=== PATIENT | male | born 1995 | race American Indian/Alaskan Native ===

== ENCOUNTER 2022-02-23 09:58 | Emergency (ER) | payer MEDICARE ==
[2022-02-23 10:05] VITALS: BP 117/76
[2022-02-23 10:34] LABS: Bilirubin,Urine NEG (Negative); Blood,Urine NEG (Negative); Color,Urine Straw (Yellow); Protein,Urine <15 mg/dL mg/dL (Negative); RBC,Urine < 1.0 /HPF (0.0-6.0); Urobilinogen,Urine < 2.0 mg/dL (<2.0); WBC,Urine < 1.0 /HPF (0.0-6.0)
[2022-02-23 10:39] LABS: Amphetamine Screen,Urine Negative; Benzodiazepines Screen,Urine Negative; Cannabinoid Screen,Urine Negative; Cocaine Screen,Urine Negative; Methadone Screen,Urine Negative; Opiate Screen,Urine Negative
--- NOTE | 2022-02-23 10:53 | Consultation ---
History of Present Illness - Reason for Consult Consult date: 02/23/22 Reason for consult: hallucinations - History of Present Psychiatric Illness The patient was seen today. He says he is hearing voices. The patient says he always hears them. I ask was the voices worse today, he says "somewhat." He says "they are yelling loud." I ask him were they telling him anything threatening or negative. He says "no, just talking loud." He says he takes meds but could not recall them. The patient denies SI/HI. I saw this patient back in January and spoke to his mother in debt. At that time mom says the patient chronically hears voices and has a solid outpatient plan in place. Mom stated the patient has had multiple inpatient admissions. The patient states he lives in a nursing home. PAST PSYCHIATRIC HISTORY Diagnoses: schizoaffective disorder, bipolar disorder, and autism or developmental delay. Suicide attempts or Self-harm behavior: Once Prior psychiatric hospitalizations: yes Substance Abuse history: Denies Previous psychiatric medications tried:( unknown monthly INJ) Outpatient treatment: Yes PAST MEDICAL HISTORY: unknown Family Psychiatric History: unknown SOCIAL HISTORY Marital Status: Single Living Arrangements: Lives in a nursing home Employment Status: Unemployed Access to guns/weapons: None reported Education: 12th grade History of Abuse: None reported Legal History: None reported REVIEW OF SYSTEMS Constitutional: Negative for weight loss ENT: Negative for stridor Respiratory: Negative for cough or hemoptysis All other systems reviewed and are negative MENTAL STATUS EXAMINATION General Appearance and Behavior: Age appropriate, good hygiene, wearing appropriate clothes, fair eye contact, calm and cooperative Cooperation: cooperative Mood: good Affect and affective range: Incongruent with mood Thought Process: circumstantial Thought Content: hallucinations Speech: normal tone and pace Suicidal Ideation: Denies Homicidal Ideation: Denies Hallucinations: Auditory Delusions: None elicited Impulse Control: Limited Insight and Judgment: Limited insight and judgment, Memory: Normal Attention: Normal Orientation: Alert, oriented x 2 Assessment and Plan (1) Hx of Schizophrenia Treatment Plan The patient to continue previously prescribed medications Risks, benefits and alternatives of medications discussed with the patient, questions answered and consent obtained from patient. PSYCHOTHERAPY: Supportive psychotherapy provided MEDICAL: Per primary team DELIRIUM PRECAUTIONS: Please re-orient patient frequently, keep lights on during the day, and minimize benzodiazepines and opiates as these medications could worsen patient's confusion. LEARNING DESIGNER: Defer to primary DISPOSITION: Do not recommend acute psychiatric inpatient treatment. The patient advised that if SI/HI or any fear of endangerment are to arise they are to seek immediate assistance. FOLLOW-UP: Will sign off Thank you for the consult. Please contact with any questions and/or concerns. Case staffed with Filemon Medications and Allergies Allergies Allergy/AdvReac Type Severity Reaction Status Date / Time No Known Allergies Allergy Verified 02/23/22 10:05 Mental Status Exam - Vital signs Last Vital Signs Temp 98.7 F 02/23/22 10:04 Pulse 98 H 02/23/22 10:04 Resp 16 02/23/22 10:04 BP 117/76 02/23/22 10:04 Pulse Ox 98 02/23/22 10:04 Results Abnormal lab results 02/23/22 Range/Units Unknown Urine pH 9.0 H (5.0-7.0) All other labs normal.
--- NOTE | 2022-02-23 12:02 | Emergency Department Report ---
HPI - General Chief Complaint: Psych Time Seen by Provider: 02/23/22 11:30 - HPI HPI: The patient came to be evaluated by psychiatry. He is a known schizophrenic patient with good compliance that has been hearing voices. At this time he was evaluated by psychiatry and deemed not a danger to himself or others. He has been given a recommendation to be discharged from psychiatry. Medically he has got no complaints. He denies nausea vomiting fever chills chest pain focal weakness headache or any other associated symptoms. ED Past Medical Hx - Past Medical History Previous Medical History?: Yes Hx Psychiatric Treatment: Yes (schizophrenic) ED Review of Systems ROS: Stated complaint: PSYCH Other details as noted in HPI Comment: All other systems reviewed and negative Physical Exam - Physical Exam Vital Signs: Vital Signs 02/23/22 10:04 Temperature 98.7 F Pulse Rate 98 H Respiratory 16 Rate Blood Pressure 117/76 [Right] O2 Sat by Pulse 98 Oximetry Physical Exam: Physical Exam: Constitutional: AAOX3. No acute distress. No diaphoresis. HENT: Normocephalic. Pupils equal and reactive. No throat edema or erythema. Neck: No neck rigidity or tenderness. Cardiovascular: Heart sounds: No murmur. Normal rate and regular rhythm. Pulses: Intact distal pulses. Lungs: No wheezing or rales. Chest wall: No tenderness. Abdominal: No distension. No mass/pulsatile mass. No abdominal tenderness, guarding nor rebound. Musculoskeletal: Normal range of motion. No edema, No calf TTP. Skin: Warm and dry. Neurological: Alert and oriented to person, place, and time. Psychiatric: Mood and affect normal. Normal cognition and memory. Normal judgement. He says he hears loud voices but he does not seem to be hearing them at this time. He is nonsuicidal. ED Course Vital Signs 02/23/22 10:04 Temperature 98.7 F Pulse Rate 98 H Respiratory 16 Rate Blood Pressure 117/76 [Right] O2 Sat by Pulse 98 Oximetry Critical care attestation.: If time is entered above; I have spent that time in minutes in the direct care of this critically ill patient, excluding procedure time. ED Disposition Clinical Impression: Schizophrenia Disposition: 01 HOME / SELF CARE / HOMELESS Is pt being admited?: No Does the pt Need Aspirin: No Condition: Stable Instructions: Supporting Someone With Schizophrenia, Managing Schizophrenia Additional Instructions: Professional and Agency Contacts To help Resolve Crises(06/06) MD Crisis Line: Suicide Prevention Line: Crisis Text Line: Text START to [phone] Emergency: 911 Outpatient COMM[facility] Behavioral Health Resources: NOEL: [facility] [address] [place], [place] [address] LEON: [facility] [address] [place] [address] BRAYDEN: [facility] - [address] [place] [address] Tuesday thru Tuesday - 8am - 5pm AR[place]K: [facility] Service Address: [address] [place] [address] FERNANDA: [facility] Address: [address] [place] [address] Tuesday thru Tuesday- 7am-2pm [facility] Address: [address] [place] [address] Tuesday thru Tuesday: 8:30AM-5PM Time of Disposition: 12:05 Print Language: JAPANESE
== END 2022-02-23 13:00 | disposition home or self-care (01) ==
LOC: ED 09:58
DX: F20.9 Schizophrenia, unspecified (principal); Z20.822 Contact with and (suspected) exposure to COVID-19
CPT/HCPCS: 80307; 81001; 99284; U0003

== ENCOUNTER 2022-06-27 08:13 | Emergency (ER) | payer MEDICARE ==
[2022-06-27 08:16] VITALS: BP 124/72
--- NOTE | 2022-06-27 13:52 | Emergency Department Report ---
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 Mother states he does this when he does not get his way. She states nothing is wrong with him Symptoms Since Prior Visit: no new symptoms - Related Data Home Medications Medication Instructions Recorded Confirmed Last Taken Benztropine Mesylate 1 mg PO BID 07/20/19 05/09/22 07/19/19 [place] Carbonate ER [Lithobid ER] 450 mg PO BID 07/20/19 05/09/22 07/19/19 Trazodone HCl 150 mg PO QHS 07/20/19 05/09/22 07/19/19 clonazePAM [Klonopin] 1 mg PO BID 07/20/19 05/09/22 07/19/19 cloZAPine [Clozapine] 100 mg PO QHS 05/19/21 05/09/22 Unknown ARIPiprazole [Abilify Maintena] 400 mg IM QMONTH 01/26/22 05/09/22 05/07/22 400 MG Divalproex ER [DepaKOTE ER] 250 mg PO BID 01/26/22 05/09/22 Unknown Divalproex ER [DepaKOTE ER] 500 mg PO HS 01/26/22 05/09/22 Unknown Melatonin [Melatonin 10MG CAP] 10 mg PO HS 01/26/22 05/09/22 Unknown Previous Rx's Medication Instructions Recorded Last Taken Type Cetirizine HCl [Zyrtec 10mg tab] 10 mg PO DAILY #20 tab 12/01/21 Unknown Rx Allergies Allergy/AdvReac Type Severity Reaction Status Date / Time No Known Allergies Allergy Verified 06/27/22 08:16 ED Review of Systems ROS: Stated complaint: ANXIETY Other details as noted in HPI Comment: All other systems reviewed and negative ED Past Medical Hx - Past Medical History Previous Medical History?: Yes Hx Psychiatric Treatment: Yes (SCHIZOAFFECTIVE DISORDER) - Surgical History Past Surgical History?: No Additional Surgical History: UNKNOWN - Family History Family history: no significant - Social History Smoking Status: Current Every Day Smoker Substance Use Type: None - Medications Home Medications: Home Medications Medication Instructions Recorded Confirmed Last Taken Type Benztropine Mesylate 1 mg PO BID 07/20/19 05/09/22 07/19/19 History [place] Carbonate ER [Lithobid ER] 450 mg PO BID 07/20/19 05/09/22 07/19/19 History Trazodone HCl 150 mg PO QHS 07/20/19 05/09/22 07/19/19 History clonazePAM [Klonopin] 1 mg PO BID 07/20/19 05/09/22 07/19/19 History cloZAPine [Clozapine] 100 mg PO QHS 05/19/21 05/09/22 Unknown History Cetirizine HCl [Zyrtec 10mg tab] 10 mg PO DAILY #20 tab 12/01/21 05/09/22 Unknown Rx ARIPiprazole [Abilify Maintena] 400 mg IM QMONTH 01/26/22 05/09/22 05/07/22 History 400 MG Divalproex ER [DepaKOTE ER] 250 mg PO BID 01/26/22 05/09/22 Unknown History Divalproex ER [DepaKOTE ER] 500 mg PO HS 01/26/22 05/09/22 Unknown History Melatonin [Melatonin 10MG CAP] 10 mg PO HS 01/26/22 05/09/22 Unknown History ED Physical Exam - General Limitations: No Limitations General appearance: alert, in no apparent distress, anxious - Head Head exam: Present: atraumatic, normocephalic - Eye Eye exam: Present: normal appearance - ENT ENT exam: Present: mucous membranes moist - Neck Neck exam: Present: normal inspection - Respiratory Respiratory exam: Present: normal lung sounds bilaterally. Absent: respiratory distress - Cardiovascular Cardiovascular Exam: Present: regular rate, normal rhythm. Absent: systolic murmur, diastolic murmur, rubs, gallop - GI/Abdominal GI/Abdominal exam: Present: soft, normal bowel sounds - Rectal Rectal exam: Present: deferred - Extremities Exam Extremities exam: Present: normal inspection - Back Exam Back exam: Present: normal inspection - Neurological Exam Neurological exam: Present: alert, oriented X3 - Psychiatric Psychiatric exam: Present: anxious - Skin Skin exam: Present: warm, dry, intact, normal color. Absent: rash ED Course Vital Signs 06/27/22 08:14 Temperature 98.7 F Pulse Rate 86 Respiratory 14 Rate Blood Pressure 124/72 [Left] O2 Sat by Pulse 100 Oximetry ED Recheck MDM - Core Measures Measure Exclusions: not indicated - Medical Decision Making no hi no si no a/v hallucination cooperative on exam he states is ready to go back to [facility] he has no complaints dc to [facility]. Vital Signs 06/27/22 08:14 Temperature 98.7 F Pulse Rate 86 Respiratory 14 Rate Blood Pressure 124/72 [Left] O2 Sat by Pulse 100 Oximetry Critical care attestation.: If time is entered above; I have spent that time in minutes in the direct care of this critically ill patient, excluding procedure time. ED Disposition Clinical Impression: Anxiety Disposition: 01 HOME / SELF CARE / HOMELESS Is pt being admited?: No Does the pt Need Aspirin: No Condition: Stable Additional Instructions: continue home meds cleared for [facility] follow up with pcp/MH provider Time of Disposition: 13:52
== END 2022-06-27 18:50 | disposition home or self-care (01) ==
LOC: ED 08:13
DX: F41.9 Anxiety disorder, unspecified (principal); F17.200 Nicotine dependence, unspecified, uncomplicated; F25.9 Schizoaffective disorder, unspecified
CPT/HCPCS: 99283

== ENCOUNTER 2022-07-06 10:02 | Emergency (ER) | payer MEDICARE ==
[2022-07-06 10:08] VITALS: BP 122/72
--- NOTE | 2022-07-06 11:31 | Emergency Department Report ---
ED General Adult HPI - General Chief complaint: Medical Clearance Stated complaint: FEELING SICK/BODY ACHES Time Seen by Provider: 07/06/22 10:37 Source: EMS Mode of arrival: Ambulatory Limitations: No Limitations - History of Present Illness Initial comments: 26-year-old male past medical history autism. Reports to the ER with complaints of body aches. When asked how long patient states for a "long time". Patient reports waking up with body aches and took his morning medications. Patient now reports he no longer feels body aches and feels okay. Patient denies any nausea, no fever, no abdominal pain, no congestion, no cough, no headache, no dizziness. Patient reports no other acute symptoms at this time. Call patient's legal guardian his mother Estelle Pittman for further history at [phone]. Mother reports patient take his medication this morning with no problems. Mother states patient is due for his Abilify at [facility] tomorrow. Mother reports no other acute symptoms at this time. Mother states patient called EMS for his body aches. Mother reports no other acute symptoms at this time. - Related Data Home Medications Medication Instructions Recorded Confirmed Last Taken Benztropine Mesylate 1 mg PO BID 07/20/19 05/09/22 07/19/19 [place] Carbonate ER [Lithobid ER] 450 mg PO BID 07/20/19 05/09/22 07/19/19 Trazodone HCl 150 mg PO QHS 07/20/19 05/09/22 07/19/19 clonazePAM [Klonopin] 1 mg PO BID 07/20/19 05/09/22 07/19/19 cloZAPine [Clozapine] 100 mg PO QHS 05/19/21 05/09/22 Unknown ARIPiprazole [Abilify Maintena] 400 mg IM QMONTH 01/26/22 05/09/22 05/07/22 400 MG Divalproex ER [DepaKOTE ER] 250 mg PO BID 01/26/22 05/09/22 Unknown Divalproex ER [DepaKOTE ER] 500 mg PO HS 01/26/22 05/09/22 Unknown Melatonin [Melatonin 10MG CAP] 10 mg PO HS 01/26/22 05/09/22 Unknown Previous Rx's Medication Instructions Recorded Last Taken Type Cetirizine HCl [Zyrtec 10mg tab] 10 mg PO DAILY #20 tab 12/01/21 Unknown Rx Allergies Allergy/AdvReac Type Severity Reaction Status Date / Time No Known Allergies Allergy Verified 06/27/22 08:16 ED Review of Systems ROS: Stated complaint: FEELING SICK/BODY ACHES Other details as noted in HPI Comment: All other systems reviewed and negative Musculoskeletal: myalgia ED Past Medical Hx - Past Medical History Previous Medical History?: Yes Hx Psychiatric Treatment: Yes (SCHIZOAFFECTIVE DISORDER) - Surgical History Additional Surgical History: UNKNOWN - Social History Smoking Status: Current Every Day Smoker Substance Use Type: None - Medications Home Medications: Home Medications Medication Instructions Recorded Confirmed Last Taken Type Benztropine Mesylate 1 mg PO BID 07/20/19 05/09/22 07/19/19 History [place] Carbonate ER [Lithobid ER] 450 mg PO BID 07/20/19 05/09/22 07/19/19 History Trazodone HCl 150 mg PO QHS 07/20/19 05/09/22 07/19/19 History clonazePAM [Klonopin] 1 mg PO BID 07/20/19 05/09/22 07/19/19 History cloZAPine [Clozapine] 100 mg PO QHS 05/19/21 05/09/22 Unknown History Cetirizine HCl [Zyrtec 10mg tab] 10 mg PO DAILY #20 tab 12/01/21 05/09/22 Unknown Rx ARIPiprazole [Abilify Maintena] 400 mg IM QMONTH 01/26/22 05/09/22 05/07/22 History 400 MG Divalproex ER [DepaKOTE ER] 250 mg PO BID 01/26/22 05/09/22 Unknown History Divalproex ER [DepaKOTE ER] 500 mg PO HS 01/26/22 05/09/22 Unknown History Melatonin [Melatonin 10MG CAP] 10 mg PO HS 01/26/22 05/09/22 Unknown History ED Physical Exam - General Limitations: No Limitations General appearance: alert, in no apparent distress - Head Head exam: Present: atraumatic, normocephalic - Eye Eye exam: Present: normal appearance - ENT ENT exam: Present: mucous membranes moist - Neck Neck exam: Present: normal inspection - Respiratory Respiratory exam: Present: normal lung sounds bilaterally. Absent: respiratory distress - Cardiovascular Cardiovascular Exam: Present: regular rate, normal rhythm. Absent: systolic murmur, diastolic murmur, rubs, gallop - GI/Abdominal GI/Abdominal exam: Present: soft, normal bowel sounds - Rectal Rectal exam: Present: deferred - Extremities Exam Extremities exam: Present: normal inspection - Back Exam Back exam: Present: normal inspection - Neurological Exam Neurological exam: Present: alert, oriented X3 - Psychiatric Psychiatric exam: Present: normal affect, normal mood - Skin Skin exam: Present: warm, dry, intact, normal color. Absent: rash ED Course Vital Signs 07/06/22 10:05 Temperature 98.3 F Pulse Rate 98 H Respiratory 18 Rate Blood Pressure 122/72 [Left] O2 Sat by Pulse 100 Oximetry ED Medical Decision Making - Medical Decision Making 26-year-old male past medical history autism. Reports to the ER with complaints of body aches. When asked how long patient states for a "long time". Patient reports waking up with body aches and took his morning medications. Patient now reports he no longer feels body aches and feels okay. Patient denies any nausea, no fever, no abdominal pain, no congestion, no cough, no headache, no dizziness. Patient reports no other acute symptoms at this time. Call patient's legal guardian his mother Estelle Pittman for further history at [phone]. Mother reports patient take his medication this morning with no problems. Mother states patient is due for his Abilify at [facility] tomorrow. Mother reports no other acute symptoms at this time. Mother states patient called EMS for his body aches. Mother reports no other acute symptoms at this time. No acute clinical findings on physical exam. Patient in no acute distress at this time. No imaging no labs are needed. After speaking with mother. Patient utilize EMS for body aches how he felt this morning. The patient reports feeling fine at this time. Patient has no thoughts of suicide no thoughts of homicide. Patient stable for discharge home. Mother has been informed of plan of care and agrees with plan of care patient has also been informed of his discharge home and no further evaluation. Patient reports understanding Vital Signs 07/06/22 10:05 Temperature 98.3 F Pulse Rate 98 H Respiratory 18 Rate Blood Pressure 122/72 [Left] O2 Sat by Pulse 100 Oximetry Critical care attestation.: If time is entered above; I have spent that time in minutes in the direct care of this critically ill patient, excluding procedure time. ED Disposition Clinical Impression: Body aches Disposition: HOME / SELF CARE / HOMELESS Is pt being admited?: No Condition: Stable Instructions: Muscle Pain, Adult Referrals: YORDAN MITCHELL MD [Primary Care Provider] - 3-5 Days
== END 2022-07-06 15:59 | disposition home or self-care (01) ==
LOC: ED 10:02
DX: R52 Pain, unspecified (principal)
CPT/HCPCS: 99283